=== PATIENT | female | born 1975 | race Caucasian/White ===

== ENCOUNTER 2023-10-23 23:24 | Inpatient (IN) | payer OTHER ==
[~2023-10-23] VITALS: Ht 157.5 cm; Wt 59.0 kg
[2023-10-24] MEDS ORDERED: ONDANSETRON 4 MG/2 ML VIAL ONE (00:12)
[2023-10-24] MEDS ORDERED: NALOXONE 2 MG/2 ML SYRINGE ONE ×2 (00:12→00:36)
[2023-10-24] MEDS: ONDANSETRON 4 MG/2 ML VIAL IV ONE ×2 (00:15→01:13)
[2023-10-24] MEDS: NALOXONE HCL 0.4 MG/ML AMPUL IV ONE ×2 (00:15→00:45)
[2023-10-24] MEDS ORDERED: NALOXONE HCL 0.4 MG/ML AMPUL ONE (00:15)
[2023-10-24] MEDS: IV NS 1000 ML 1,000 ML IV ONE ×3 (00:15→02:00)
[2023-10-24 00:40] LABS: BASOPHILS # (AUTO) 0.1 K/UL (0.0-0.2); BASOPHILS % (AUTO) 1.1 % (0.0-2.0); EOSINOPHILS % (AUTO) 0.5 % (0.0-7.0); HEMATOCRIT 37.2 % (31.2-41.9); HEMOGLOBIN 12.2 g/dL (10.9-14.3); LYMPHOCYTES % (AUTO) 30.4 % (20.5-51.5); MEAN CORPUSCULAR HGB CONC 33 g/dL (32.3-35.6); MEAN CORPUSCULAR VOLUME 94.6 fL (75.5-95.3); MONOCYTES # (AUTO) 0.4 K/uL (0.1-1.30); MONOCYTES % (AUTO) 6.1 % (0.0-11.0); NEUTROPHILS % (AUTO) 61.9 % (38.5-71.5); PLATELET COUNT (AUTO) 179 K/uL (179-408); RED BLOOD CELL COUNT(AUTO) 3.93 MIL/uL (3.63-4.92); RED CELL DISTRIBUTION WIDTH 13.4 % (12.3-17.7); WHITE BLOOD COUNT (AUTO) 6.5 K/uL (3.8-11.8)
[2023-10-24 00:53] LABS: DIFFERENTIAL COMMENT 1; ETHANOL 151 MG/DL (0-10)
[2023-10-24 01:09] LABS: CARBON DIOXIDE 22 mmol/L (21-32); CHLORIDE 105 mmol/L (98-107); CREATININE 0.7 mg/dL (0.6-1.3); GLUCOSE 102 mg/dL (74-106); POTASSIUM 3.4 mmol/L (3.5-5.1); SODIUM SERUM 141 mmol/L (136-145); UREA NITROGEN, BLOOD 14 mg/dL (7-18)
[2023-10-24 01:14] LABS: ALANINE AMINOTRANSFERASE 58 U/L (14-59); ALKALINE PHOSPHATASE 62 U/L (50-136); ASPARTATE AMINOTRANSFERASE 39 U/L (15-37); BILIRUBIN,DIRECT 0.1 mg/dL (0.0-0.2); BILIRUBIN,TOTAL 0.4 mg/dL (0.2-1.0); CALCIUM 7.7 mg/dL (8.5-10.1); TOTAL PROTEIN, SERUM 6.4 g/dL (6.4-8.2)
[2023-10-24] MEDS ORDERED: KETOROLAC TROMETHAMINE 15 MG INJ ONE (01:17)
[2023-10-24] MEDS: KETOROLAC TROMETHAMINE 15 MG INJ IVP ONE (01:22)
[2023-10-24 01:36] LABS: ACETAMINOPHEN < 10.0 ug/mL (10-30)
[2023-10-24] MEDS ORDERED: NOREPINEPHRINE BITARTRATE 4 MG/4 ML VIAL IV ONE (02:13)
[2023-10-24] MEDS ORDERED: NOREPINEPHRINE BITARTRATE 8 MG in IV NORMAL SALINE 242 ML IV PRN (02:15)
[2023-10-24] MEDS ORDERED: PIPERACILLIN/TAZOBACTAM/D5W 50 ML IV ONE (02:18)
[2023-10-24] MEDS: PIPERACILLIN SODIUM/TAZOBACTAM 3.375 G in IV DEXTROSE 5% 50 ML IV ONE (02:20)
[2023-10-24 02:33] LABS: *BILIRUBIN,URIN NEGATIVE (NEGATIVE); *BLOOD, URINE 1+ (NEGATIVE); *CLARITY,URINE CLOUDY (CLEAR); *COLOR,URINE YELLOW (YELLOW); *KETONES,URINE NEGATIVE (NEGATIVE); *PROTEIN,URINE NEGATIVE (NEGATIVE); *UROBILINOGEN,URINE 0.2 E.U./dl (NORMAL); LEUKOCYTE ESTERASE ,URINE TRACE (NEGATIVE); NITRITE, URINE NEGATIVE (NEGATIVE); UGLUCOSE NEGATIVE (NEGATIVE)
[2023-10-24 02:34] LABS: *URINE HCG, QUAL NEGATIVE (NEGATIVE)
[2023-10-24 03:08] LABS: BACTERIA,URINE MODERATE /HPF (NONE SEEN); WBC,URINE 0-3 /HPF (0-3)
[2023-10-24 03:09] LABS: SQUAMOUS EPITHELIAL CELL,UR MODERATE /HPF (NONE SEEN)
[2023-10-24 03:12] LABS: *AMPHETAMINE, URINE NEGATIVE (NEGATIVE); *BARBITURATE, URINE NEGATIVE (NEGATIVE); *BENZODIAZEPINE, URINE NEGATIVE (NEGATIVE); *CANNABINOID, URINE NEGATIVE (NEGATIVE); *COCCAINE, URINE NEGATIVE (NEGATIVE); *OPIATE, URINE NEGATIVE (NEGATIVE); *PHENCYCLIDINE SCREEN,URINE NEGATIVE (NEGATIVE)
[2023-10-24 03:13] LABS: FENTANYL, URINE NEGATIVE (NEGATIVE)
[2023-10-24] MEDS ORDERED: MAGNESIUM HYDROXIDE 30 ML LIQUID UDC PO PRN (04:00)
[2023-10-24] MEDS ORDERED: REMEDY ESSENTIAL ZINC PASTE 113 GM TP PRN (04:00)
[2023-10-24] MEDS ORDERED: ACETAMINOPHEN 325 MG TABLET PO PRN (04:00)
[2023-10-24] MEDS ORDERED: ZOLPIDEM 5 MG TABLET PO PRN (04:00)
[2023-10-24] MEDS: IV D5W-0.45% NS +20 KCL 1,000 ML IV SCH (04:00)
[2023-10-24] MEDS ORDERED: ONDANSETRON 4 MG/2 ML VIAL IV PRN (04:00)
[2023-10-24 05:17] LABS: BASOPHILS % (AUTO) 0.1 % (0.0-2.0); EOSINOPHILS % (AUTO) 0.1 % (0.0-7.0); HEMATOCRIT 36.3 % (31.2-41.9); HEMOGLOBIN 12.1 g/dL (10.9-14.3); LYMPHOCYTES # (AUTO) 0.7 K/uL (0.8-4.8); LYMPHOCYTES % (AUTO) 11.6 % (20.5-51.5); MEAN CORPUSCULAR HEMOGLOBIN 31.6 uug (24.7-32.8); MEAN CORPUSCULAR HGB CONC 33 g/dL (32.3-35.6); MEAN CORPUSCULAR VOLUME 94.6 fL (75.5-95.3); MONOCYTES # (AUTO) 0.1 K/uL (0.1-1.30); MONOCYTES % (AUTO) 1.6 % (0.0-11.0); NEUTROPHILS # (AUTO) 5.3 K/uL (1.8-8.9); NEUTROPHILS % (AUTO) 86.6 % (38.5-71.5); PLATELET COUNT (AUTO) 165 K/uL (179-408); RED BLOOD CELL COUNT(AUTO) 3.83 MIL/uL (3.63-4.92); RED CELL DISTRIBUTION WIDTH 13.4 % (12.3-17.7); WHITE BLOOD COUNT (AUTO) 6.1 K/uL (3.8-11.8)
[2023-10-24 05:50] LABS: DIFFERENTIAL COMMENT 1
[2023-10-24 05:57] LABS: THYROID STIMULATING HORMONE 1.044 mIU/mL (0.358-3.740)
[2023-10-24 06:00] VITALS: BP 99/55; TEMP 98; O2SAT 99
[2023-10-24] MEDS ORDERED: PIPERACILLIN SODIUM/TAZOBACTAM 3.375 G in IV DEXTROSE 5% 50 ML IV SCH (06:00)
[2023-10-24 06:06] LABS: ALANINE AMINOTRANSFERASE 153 U/L (14-59); ALBUMIN 2.9 g/dL (3.4-5.0); ALKALINE PHOSPHATASE 61 U/L (50-136); ASPARTATE AMINOTRANSFERASE 150 U/L (15-37); BILIRUBIN,DIRECT 0.1 mg/dL (0.0-0.2); BILIRUBIN,TOTAL 0.5 mg/dL (0.2-1.0); CARBON DIOXIDE 21 mmol/L (21-32); CHLORIDE 108 mmol/L (98-107); CREATININE 0.6 mg/dL (0.6-1.3); GLUCOSE 117 mg/dL (74-106); MAGNESIUM 1.5 mg/dL (1.8-2.4); PHOSPHOROUS 3.8 mg/dL (2.5-4.9); POTASSIUM 3.7 mmol/L (3.5-5.1); SODIUM SERUM 140 mmol/L (136-145); TOTAL PROTEIN, SERUM 6.2 g/dL (6.4-8.2); UREA NITROGEN, BLOOD 11 mg/dL (7-18)
[2023-10-24] MEDS: PIPERACILLIN SODIUM/TAZOBACTAM 3.375 G in IV DEXTROSE 5% 100 ML IV SCH (07:54)
[2023-10-24 08:15] VITALS: BP 110/63; O2SAT 98
[2023-10-24] MEDS: ENOXAPARIN SODIUM 40 MG/0.4 ML DISP.SYRIN SQ SCH (09:00)
[2023-10-24] MEDS: MAGNESIUM SULFATE/D5W 100 ML IV SCH (10:11)
[2023-10-24] MEDS: PANTOPRAZOLE SODIUM 40 MG VIAL IV SCH (10:11)
[2023-10-24 12:32] VITALS: BP 92/52; TEMP 98.1; O2SAT 97
[2023-10-24] MEDS: IV NORMAL SALINE 500 ML IV ONE ×2 (13:56→16:40)
[2023-10-24 14:15] VITALS: BP 88/49; O2SAT 97
[2023-10-24 16:00] VITALS: BP 89/52; TEMP 98.4; O2SAT 97
[2023-10-24] MEDS ORDERED: IV NS 1000 ML 1,000 ML IV SCH (17:30)
[2023-10-24 18:00] VITALS: BP 99/60; O2SAT 97
[2023-10-24] MEDS ORDERED: METR500T PO (18:12)
[2023-10-24] MEDS ORDERED: CIPR-262 PO (18:12)
== END 2023-10-24 19:10 | disposition home or self-care (01) | DRG 372 ==
LOC: ER 23:26 → CCU 10-24 03:41 → TELE-TD3 10-24 08:25
PROVIDERS: ADMIT Nurse Practitioner Family; ATTEND Nurse Practitioner Family
DX: A04.9 Bacterial intestinal infection, unspecified (principal); E87.20 Acidosis, unspecified; E87.6 Hypokalemia; R74.01 Elevation of levels of liver transaminase levels; I95.9 Hypotension, unspecified; F10.129 Alcohol abuse with intoxication, unspecified; Y90.6 Blood alcohol level of 120-199 mg/100 ml
CPT/HCPCS: 36415; 83605; 83690; 83735; 84100; 84443; 84484; 84703; 85025; A4606; A4663; C9113; G0378; G0480; J1650; J1885; J2310; J2405; J2543; J3475; J3490; J7040